=== PATIENT | female | born 1950 | race Caucasian/White ===

== ENCOUNTER → 2020-11-20 | Outpatient (CLI) | payer MEDICARE ==
[~2020-11-20] MED LIST: CRESTOR5 MG; FLEXERIL PO; NAPROSYN500 MG PO; POTASSIUM; SIMVASTATIN20 MG; XANAX 0.5 MG0.5 MG
--- NOTE | 2020-11-20 09:22 | 2DMMODE ---
[place] [address] 2 D/M-MODE ECHOCARDIOGRAM Name: JEANNERADHA S Room: [facility]#: [id number] Admission: 11/20/20 Attend Phys: Mary Ellen Ambrocio MD Discharge: Date of : 52 Date of Service: 11/20/20 0922 Report #: [id number] THIS REPORT FOR: cc: Mary Ellen Ambrocio MD, Katrina MD Holkins,Art Max MD [facility] ~ APPROVED REPORT Study performed: 11/20/2020 08:01:55 EXAM: Comprehensive 2D, Doppler, and color-flow Echocardiogram Patient Location: Out-Patient BSA: 1.39 HR: 44 bpm BP: 130/70 mmHg Other Information Study Quality: Good Indications Peripheral Edema 2D Dimensions IVSd: 9.20 (7-11mm) LVOT Diam: 20.99 (18-24mm) LVDd: 47.43 mm PWd: 9.10 (7-11mm) Ascending Ao: 29.05 (22-36mm) LVDs: 30.70 (25-40mm) Aortic Root: 26.00 mm Volumes Left Atrial Volume (Systole) LA ESV Index: 21.70 mL/m2 Aortic Valve AoV Peak Lamonte.: 1.36 m/s AO Peak Gr.: 7.36 mmHg LVOT Max P.54 mmHg AO Mean Gr.: 4.14 mmHg LVOT Mean P.92 mmHg LVOT Max V: 1.07 m/s AO V2 VTI: 30.74 cm LVOT Mean V: 0.63 m/s SHEILA (VTI): 2.64 cm2 LVOT V1 VTI: 23.44 cm Mitral Valve E/A Ratio: 0.70 [place] [address] 2 D/M-MODE ECHOCARDIOGRAM Name: RADHA ANGEL Room: [facility]#: [id number] Admission: 11/20/20 Attend Phys: Mary Ellen Ambrocio MD Discharge: Date of : 52 Date of Service: 11/20/20 0922 Report #: [id number] MV Decel. Time: 273.50 ms MV E Max Lamonte.: 0.44 m/s MV PHT: 79.31 ms MVA (PHT): 2.77 cm2 TDI E/Lateral E': 7.33 E/Medial E': 11.00 Medial E' Lamonte.: 0.04 m/s Lateral E' Lamonte.: 0.06 m/s Pulmonary Valve PV Peak Lamonte.: 0.78 m/s PV Peak Gr.: 2.45 mmHg Tricuspid Valve RAP Estimate: 5.00 mmHg TR Peak Gr.: 21.19 mmHg RVSP: 26.19 mmHg PA Pressure: 26.19 mmHg Left Ventricle The left ventricle is normal size. Mild inferobasilar hypokiesis is noted. There is normal left ventricular wall thickness. Left ventricular systolic function is normal. The left ventricular ejection fraction is within the normal range. LVEF is 55%. Grade I - abnormal relaxation pattern. Right Ventricle The right ventricle is normal size. The right ventricular systolic function is normal. Atria The left atrium size is normal. Atrial septal defect is present with minimal left to right flow across the defect. The right atrium size is normal. Aortic Valve Mild aortic valve sclerosis. No aortic regurgitation is present. There is no aortic valvular stenosis. Mitral Valve The mitral valve is normal in structure. Mild mitral regurgitation. No evidence of mitral valve stenosis. Tricuspid Valve The tricuspid valve is normal in structure. [place] [address] 2 D/M-MODE ECHOCARDIOGRAM Name: RADHA ANGEL Room: [facility]#: [id number] Admission: 11/20/20 Attend Phys: Mary Ellen Ambrocio MD Discharge: Date of : 52 Date of Service: 11/20/20 0922 Report #: [id number] Pulmonic Valve The pulmonary valve is normal in structure. There is no pulmonic valvular regurgitation. Great Vessels The aortic root is normal in size. IVC is normal in size and collapses >50% with inspiration. Pericardium There is no pericardial effusion. <Conclusion> The left ventricle is normal size. There is normal left ventricular wall thickness. Left ventricular systolic function is normal. The left ventricular ejection fraction is within the normal range. LVEF is 55%. Grade I - abnormal relaxation pattern. The right ventricle is normal size. The left atrium size is normal. Mild aortic valve sclerosis. No aortic regurgitation is present. There is no aortic valvular stenosis. The mitral valve is normal in structure. Mild mitral regurgitation. The tricuspid valve is normal in structure. Mild tricuspid regurgitation. IVC is normal in size and collapses >50% with inspiration. There is no pericardial effusion. Mild inferobasilar hypokiesis is noted. Atrial septal defect is present with minimal left to right flow across the defect. <ELECTRONICALLY SIGNED> By: Art Leahy MD, FACC 11/20/20921 1 1 Art Leahy MD, FACC /INF
== END ==
LOC: M.CRD 08:00
PROVIDERS: ATTEND Family Medicine
DX: I08.1 Rheumatic disorders of both mitral and tricuspid valves (principal); K43.9 Ventral hernia without obstruction or gangrene; R60.9 Edema, unspecified; R16.0 Hepatomegaly, not elsewhere classified; R55 Syncope and collapse